=== PATIENT | male | born 1970 | race African-American/Black ===

== ENCOUNTER 2017-12-23 08:19 | Day surgery (SDC) | payer OTHER, MEDICAID ==
[~2017-12-23 08:19] MED LIST: BUPIVACAINE 0.5% (SDV) 30 ML, morphine SULFATE (PF) 8 MG, EPINEPHrine 0.3 MG, KETOROLAC... IRR; CEFAZOLIN 1 GM INJ; CEFAZOLIN 2 GM/50 ML (PMX) 50 ML IVPB; TRANEXAMIC ACID 1,000 MG in DEXTROSE 5% 100 ML IVPB
[2017-12-23] MEDS ORDERED: GLYCOPYRROLATE 0.4 MG INJ (09:09)
[2017-12-23] MEDS ORDERED: NEOSTIGMINE 3 MG/3 ML SYRINGE (09:09)
[2017-12-23] MEDS ORDERED: LIDOCAINE 2% (SDV) 5 ML INJ (09:09)
[2017-12-23] MEDS ORDERED: ONDANSETRON 4 MG INJ (09:09)
[2017-12-23] MEDS ORDERED: PROPOFOL 20 ML (09:09)
[2017-12-23] MEDS ORDERED: DEXAMETHASONE 4 MG/ML 1 ML INJ (09:09)
[2017-12-23] MEDS ORDERED: ROCURONIUM 50 MG INJ (09:09)
[2017-12-23] MEDS ORDERED: MIDAZOLAM 1 MG/ML 2 ML INJ (09:09)
[2017-12-23] MEDS ORDERED: FENTAnyl 50 MCG/ML VIAL (09:09)
[2017-12-23] MEDS ORDERED: ROPIVACAINE 0.5 % 30 ML VIAL (09:12)
[2017-12-23] MEDS: GABAPENTIN 300 MG CAP PO (09:29)
[2017-12-23] MEDS: DEXAMETHASONE 1 MG TAB PO (09:30)
[2017-12-23] MEDS: LACTATED RINGER'S 1,000 ML IV* (09:30)
[2017-12-23] MEDS: traMADol 50 MG TAB PO (09:31)
[2017-12-23] MEDS ORDERED: LABETALOL HCL 20MG INJ (12:39)
[2017-12-23] MEDS ORDERED: ATROPINE 1 MG/10 ML SYRINGE IV (14:00)
[2017-12-23] MEDS ORDERED: HYDROmorphONE 1 MG/5 ML IV SYRINGE IV ×3 (14:00)
[2017-12-23] MEDS ORDERED: MIDAZOLAM 1 MG/ML 2 ML INJ IV (14:00)
[2017-12-23] MEDS ORDERED: LABETALOL HCL 20MG INJ IV (14:00)
[2017-12-23] MEDS ORDERED: MEPERIDINE 25 MG INJ IV (14:00)
[2017-12-23] MEDS ORDERED: EPHEDrine SULFATE 50 MG/5 ML SYG IV (14:00)
[2017-12-23] MEDS ORDERED: DIPHENHYDRAMINE 50 MG INJ IV (14:00)
[2017-12-23] MEDS ORDERED: OXYCODONE/ACETAMINOPHEN (5/325) TAB PO ×2 (14:00)
[2017-12-23] MEDS ORDERED: morphine (1 MG/ML) 10ML SYRINGE IV ×3 (14:00)
[2017-12-23] MEDS ORDERED: ONDANSETRON 4 MG INJ IV (14:00)
[2017-12-23] MEDS ORDERED: hydrALAzine 20 MG INJ IV (14:00)
[2017-12-23] MEDS ORDERED: FENTAnyl 50 MCG/ML VIAL IV ×2 (14:00)
== END 2017-12-23 15:45 | disposition home or self-care (01) ==
LOC: SDS 08:19
DX: M75.101 Unspecified rotator cuff tear or rupture of right shoulder, not specified as traumatic (principal); S46.211D Strain of muscle, fascia and tendon of other parts of biceps, right arm, subsequent encounter; X58.XXXD Exposure to other specified factors, subsequent encounter; M13.811 Other specified arthritis, right shoulder; M25.811 Other specified joint disorders, right shoulder; E11.9 Type 2 diabetes mellitus without complications
CPT/HCPCS: 29823; 82962